=== PATIENT | female | born 1960 | race Caucasian/White ===

== ENCOUNTER 2016-12-28 20:01 | Emergency (ER) | payer OTHER ==
[~2016-12-28] VITALS: Ht 162.6 cm; Wt 73.0 kg
[2016-12-28 20:28] VITALS: Ht 162.6 cm; Wt 73.0 kg
[2016-12-29] MEDS ORDERED: IBUPROFEN 200 MG TAB PO ONE
[2016-12-29] MEDS ORDERED: DIAZEPAM 5 MG TAB PO ONE
[2016-12-29 00:21] LABS: URINE BLOOD (Dip) POC Trace-lysed (NEGATIVE)
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
--- NOTE | 2016-12-29 01:03 | RADRPT ---
PROCEDURE: Chest x-ray. CLINICAL INDICATION: Injury, chest pain. TECHNIQUE: PA and lateral views of the chest. COMPARISON: None. FINDINGS: No pulmonary edema or conolidation is identified. The cardiac silhouette is not enlarged. No pleur al effusion is seen. There is no pneumothorax. No fracture is identified. IMPRESSION: 1. No radiographic evidence of traumatic chest injury. RPTAT: HTAR .Bruce Gomez MD, MD Date Time Electronically viewed and signed by .Bruce Gomez MD, on 12/29/2016 01:03 .R/
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
[2016-12-29] MEDS ORDERED: IBUP400T22 PO (01:42)
[2016-12-29] MEDS ORDERED: DIAZ-90 PO (01:43)
[2016-12-29 02:19] VITALS: BP 121/77; PULSE 85; RESP 20; TEMP 97.9
== END 2016-12-29 02:20 | disposition home or self-care (01) ==
LOC: FTE 20:01
DX: M54.2 Cervicalgia (principal); M79.602 Pain in left arm; M54.5 Low back pain; R07.81 Pleurodynia; Z04.1 Encounter for examination and observation following transport accident
CPT/HCPCS: 71020; 72100; 81003; Z7610